=== PATIENT | male | born 1995 | race Caucasian/White ===

== ENCOUNTER 2023-09-15 13:09 | Emergency (ER) | payer MEDICAID ==
[~2023-09-15] VITALS: Ht 170.2 cm; Wt 99.8 kg
[2023-09-15] MEDS ORDERED: TRAMADOL HCL 50 MG TABLET ONE (13:58)
[2023-09-15] MEDS ORDERED: KETOROLAC TROMETHAMINE INJ 30 MG/ML VIAL ONE (13:58)
[2023-09-15] MEDS ORDERED: TRAMADOL HCL 50 MG TABLET PO ONE (14:00)
[2023-09-15] MEDS ORDERED: KETOROLAC TROMETHAMINE INJ 60 MG/2 ML VIAL IM ONE (14:00)
[2023-09-15] MEDS ORDERED: KETO10TA2 PO (14:13)
[2023-09-15] MEDS ORDERED: TRAM-351 PO (14:13)
[2023-09-15] MEDS ORDERED: HYDROCODONE/APAP 5/325MG TABLET PO ONE (14:30)
[2023-09-15 14:31] VITALS: BP 124/70; TEMP 98.2; O2SAT 100
== END 2023-09-15 14:31 | disposition home or self-care (01) ==
LOC: ER 13:13
DX: S90.31XA Contusion of right foot, initial encounter (principal); Z79.899 Other long term (current) drug therapy; Z60.2 Problems related to living alone; V89.2XXA Person injured in unspecified motor-vehicle accident, traffic, initial encounter; Y93.89 Activity, other specified; Y92.89 Other specified places as the place of occurrence of the external cause; Y99.8 Other external cause status
CPT/HCPCS: 99283; 96372; 73630; J1885